=== PATIENT | female | born 1960 | race Caucasian/White ===

== ENCOUNTER 2023-04-28 08:50 | Day surgery (SDC) | payer OTHER ==
[~2023-04-28] VITALS: Ht 160 cm; Wt 63.5 kg
[2023-04-28] MEDS ORDERED: fentaNYL citrate 0.05 MG/ML VIAL ONE (11:03)
[2023-04-28] MEDS ORDERED: MIDAZOLAM 2 MG/2 ML VIAL ONE (11:04)
[2023-04-28] MEDS ORDERED: LIDOCAINE 2% 100 MG/5 ML UJET TP ONE ×2 (11:04→12:25)
[2023-04-28] MEDS ORDERED: fentaNYL citrate 0.05 MG/ML VIAL IVP ONE (12:25)
[2023-04-28] MEDS ORDERED: MIDAZOLAM 2 MG/2 ML VIAL IVP ONE (12:25)
== END 2023-04-28 12:40 | disposition home or self-care (01) ==
LOC: MDS 08:50 → MMU 08:51 → MDS 12:40
PROVIDERS: ATTEND Internal Medicine Gastroenterology
DX: K62.5 Hemorrhage of anus and rectum (principal); K29.70 Gastritis, unspecified, without bleeding; K20.90 Esophagitis, unspecified without bleeding; R10.13 Epigastric pain; K64.9 Unspecified hemorrhoids; I10 Essential (primary) hypertension; E11.9 Type 2 diabetes mellitus without complications; M19.90 Unspecified osteoarthritis, unspecified site; E78.00 Pure hypercholesterolemia, unspecified; Z79.899 Other long term (current) drug therapy
CPT/HCPCS: 36415; 43239; 45378; 82948; 86677; J2250; J3010